=== PATIENT | male | born 1995 | race Caucasian/White ===

== ENCOUNTER 2021-10-28 10:09 | Emergency (ER) | payer MEDICAID, SELFPAY ==
--- NOTE | 2021-10-28 10:15 | ECG_ITS ---
Test Reason : headache, chest pain, weakness Blood Pressure : / mmHG Vent. Rate : 092 BPM Atrial Rate : 092 BPM P-R Int : 142 ms QRS Dur : 082 ms QT Int : 322 ms P-R-T Axes : 059 075 043 degrees QTc Int : 398 ms Normal sinus rhythm Normal ECG No previous ECGs available Referred By: Generic ED Physician Electronically Signed By:Srini Penaloza
[2021-10-28 10:42] VITALS: BP 134/75; PULSE 97; RESP 18; TEMP 37.1; O2SAT 99; BMI 19.3
[2021-10-28 10:43] LABS: COVID-19 Test Positive (Negative)
--- NOTE | 2021-10-28 11:00 | ED.GENADULT ---
HPI - General Adult General Chief complaint: Upper Respiratory Symptoms Stated complaint: Chest pain/headache Time Seen by Provider: 10/28/21 11:00 History of Present Illness HPI narrative: Patient complains of runny nose cough and body aches for 2 days, his chest hurts when he coughs but no other time He has no shortness of breath and he did get vaccinated for COVID 2 shots Related Data Allergies Allergy/AdvReac Type Severity Reaction Status Date / Time No Known Allergies Allergy Verified 10/28/21 10:41 Review of Systems Review of Systems: Positive for runny nose cough and body aches Negatives are no fever no chills no dizziness or weakness no fainting no feeling faint no headache no stiff neck no sore throat no shortness of breath no abdominal pain no nausea vomiting or diarrhea Yes all other systems are reviewed and are negative FORMERLY [facility] Past Medical History Source: nursing notes reviewed Social History Social History Advance Directives: No Advance Directives Information Provided: Yes Physical Exam Vital Signs: Vital Signs: Last Vital Signs Temp 98.7 F 10/28/21 10:42 Pulse 97 10/28/21 10:42 Resp 18 10/28/21 10:42 BP 134/75 10/28/21 10:42 Pulse Ox 99 10/28/21 10:42 BMI result Body Mass Index 19.3 General appearance comfortable relaxed cooperative no acute distress The eyes no redness or discharge The pharynx is clear with no redness swelling or exudate, well hydrated The neck is supple Respiratory no distress Chest clear to auscultation bilateral Heart no murmur Extremities for range of motion x4 Course Course Course Narrative: Very well-appearing patient positive for COVID is discharged He has no chest pain except when he coughs and EKG was done for this reason in triage the EKG showed a normal sinus rhythm no acute ischemic changes no ST elevations normal intervals normal QT Medical Decision Making Lab Data Labs: Lab Results 10/28/21 Range/Units 10:28 COVID-19 ([facility]) Positive A (Negative) COVID-19 Clin Com See Note Discharge Plan Discharge Clinical Impression: COVID-19 Patient Disposition: Home, Self-Care Additional Instructions: Your COVID test was positive This is very contagious so quarantine for 7 days Return any time for any difficulty breathing any worse condition or any concerns Today vital signs and physical exam were normal no sign of any dangerous condition right now Stand Alone Forms: Work/School Release Interventions: ED Discharge Assessment Last Done: 10/28/21 11:15 Discharge Date/Time: 10/28/21 11:15
== END 2021-10-28 11:15 | disposition home or self-care (01) ==
PROVIDERS: Emergency Provider Emergency Medicine
DX: U07.1 COVID-19 (principal)
CPT/HCPCS: 36415; 87635; 93005; 99283